=== PATIENT | male | born 1995 | race African-American/Black ===

== ENCOUNTER 2018-09-30 18:21 | Emergency (ER) | payer SELFPAY ==
[~2018-09-30] VITALS: Ht 172.7 cm; Wt 68.2 kg
[2018-09-30] MEDS ORDERED: AZITHROMYCIN 250 MG TABLET PO ONE (21:00)
[2018-09-30] MEDS ORDERED: LIDOCAINE/PF 1% 5 ML VIAL INJ ONE (21:00)
[2018-09-30] MEDS ORDERED: CefTRIAXone SODIUM 1 GM/VIAL IM ONE (21:00)
[2018-09-30 21:36] VITALS: BP 134/82
== END 2018-09-30 21:58 | disposition home or self-care (01) ==
LOC: EMS 18:23
DX: N34.1 Nonspecific urethritis (principal); Z20.2 Contact with and (suspected) exposure to infections with a predominantly sexual mode of transmission
CPT/HCPCS: 96372; 99283; J0696; J3490